=== PATIENT | male | born 1950 | race Caucasian/White ===

== ENCOUNTER 2019-10-02 06:13 | Day surgery (SDC) | payer OTHER, BC ==
[~2019-10-02] VITALS: Ht 177.8 cm; Wt 89.8 kg
[~2019-10-02 06:13] MED LIST: ATENOLOL 25 MG25 M1 PO; SIMVASTATIN40 MG PO
[2019-10-02 06:42] LABS: HEMATOCRIT 42.4 % (42.0-52.0); HEMOGLOBIN 14.7 gm/dL (14.0-18.0); MCH 31.3 pg (26.0-34.0); MCHC 34.6 g/dL (28.0-37.0); MCV 90.5 fL (80.0-100.0); RBC 4.69 mil/uL (4.50-6.00); RDW 13.5 % (10.5-14.5); WBC 6.9 thou/uL (4.0-11.0)
[2019-10-02 06:54] LABS: CALCIUM 8.3 mg/dL (8.5-10.1)
[2019-10-02 07:00] LABS: ALBUMIN 3.8 g/dL (3.4-5.0); TOTAL BILIRUBIN 0.5 mg/dL (0.2-1.0); TOTAL PROTEIN 7.1 g/dL (6.4-8.2)
[2019-10-02 07:12] VITALS: BP 116/62
--- NOTE | 2019-10-06 13:15 | O ---
[facility] [place] [address] OPERATIVE REPORT Name: ANTWAN JUAREZ Room #: DEP [facility] M.R.#: [id number] Admission: 10/02/19 Attend Phys: Eyad Rose, Discharge: 10/02/19 Date of : 50 Report #: [id number] THIS REPORT FOR: cc: Nicolasa Fry,Nicolasa Velez,Eyad Bazzi MD ~ CC: Eyad Fry DATE OF SERVICE: 10/02/2019 PREOPERATIVE DIAGNOSIS: Right recurrent inguinal hernia. POSTOPERATIVE DIAGNOSIS: Right recurrent inguinal hernia. OPERATION: Laparoscopic repair of right recurrent inguinal hernia with mesh. SURGEON: Eyad Rose MD ANESTHESIA: General. ESTIMATED BLOOD LOSS: Minimal. SPECIMEN: None. DESCRIPTION OF PROCEDURE: After informed consent was obtained, the patient was brought to the operating room and placed supine. SCDs were placed and working, preoperative antibiotics were administered, general anesthesia was induced. The abdomen was prepped and draped in the usual sterile fashion. The patient had voided just prior to coming back to surgery. A 10 mm incision was made above the umbilicus. Fascia was incised and a trocar was placed. Pneumoperitoneum was established. Right and left lower quadrant 5 mm ports were placed. The patient was placed in the Trendelenburg position. The peritoneum at the right ASIS was scored. Peritoneum was incised and reflected inferiorly. This allowed visualization of the pubic bone. I identified Paul's ligament. Epigastric vessels were identified and protected at all times. Cord structures were identified. A small cord lipoma was fully reduced. He had a recurrent direct inguinal hernia, this was all reduced bluntly. I could see the hernia defect. I inserted a large Bard 3DMax light mesh. It was tacked to Paul's ligament with 2 absorbable tacks. I then reapproximated the peritoneum with a running Stratafix suture. This covered the mesh widely and completely. The area was then instilled with 10 mL of 0.5% Marcaine solution. The ports were then removed under direct vision. The fascia at the umbilicus was closed with a [facility] [address] [place] [address] OPERATIVE REPORT Name: ANTWAN JUAREZ Room #: DEP [facility].#: [id number] Admission: 10/02/19 Attend Phys: Eyad Rose, Discharge: 10/02/19 Date of : 50 Report #: [id number] 0 Vicryl. Skin was closed with 4-0 Monocryl. Incisions were sealed with Dermabond. COMPLICATIONS: None. DISPOSITION: The patient was taken to recovery in satisfactory condition. <ELECTRONICALLY SIGNED> By: Eyad Rose MD 10/06/19 1315 [id number] Eyad Rose MD /jonathan
== END 2019-10-02 10:20 | disposition home or self-care (01) ==
LOC: OR 06:13 → TBA 06:13 → OR 10:20
PROVIDERS: Family Medicine; ATTEND Surgery
DX: K40.91 Unilateral inguinal hernia, without obstruction or gangrene, recurrent (principal); I10 Essential (primary) hypertension; E78.00 Pure hypercholesterolemia, unspecified; J45.909 Unspecified asthma, uncomplicated; Z98.890 Other specified postprocedural states; Z11.59 Encounter for screening for other viral diseases; Z79.899 Other long term (current) drug therapy; Z79.891 Long term (current) use of opiate analgesic; Z88.8 Allergy status to other drugs, medicaments and biological substances
CPT/HCPCS: 50010; 50101; 50249; 50411; 50507; 50555; 50848; 51489; 52265; 52266; 53307; 53314; 54022; 54118; 56462; 56525; 56526; 56531; 62110; 62900; 70005

== ENCOUNTER → 2021-01-24 | Outpatient (CLI) | payer OTHER, BC | LOC: LAB 09:21 | PROVIDERS: ATTEND Student in an Organized Health Care Education/Training Program | DX: Z01.812 Encounter for preprocedural laboratory examination (principal); Z20.822 Contact with and (suspected) exposure to COVID-19 ==

== ENCOUNTER → 2021-01-28 | Outpatient (CLI) | payer OTHER, BC ==
[~2021-01-28] VITALS: Ht 177.8 cm; Wt 88.5 kg
== END | disposition home or self-care (01) ==
LOC: GI 08:37
PROVIDERS: ATTEND Internal Medicine Gastroenterology
DX: Z12.11 Encounter for screening for malignant neoplasm of colon (principal); K57.30 Diverticulosis of large intestine without perforation or abscess without bleeding; K64.8 Other hemorrhoids; I10 Essential (primary) hypertension; J45.909 Unspecified asthma, uncomplicated; E78.00 Pure hypercholesterolemia, unspecified; Z98.890 Other specified postprocedural states; Z79.899 Other long term (current) drug therapy; Z88.6 Allergy status to analgesic agent
CPT/HCPCS: 62110; 62900

== ENCOUNTER 2021-04-12 16:10 | Emergency (ER) | payer OTHER, BC ==
[~2021-04-12] VITALS: Ht 177.8 cm; Wt 90.7 kg
[2021-04-12 16:55] LABS: ABSOLUTE NEUTROPHILS 3.8 thou/uL (1.4-8.2); BASOPHILS 1.3 % (0.0-2.0); EOSINOPHILS 3.5 % (0.0-3.0); HEMOGLOBIN 14.3 gm/dL (14.0-18.0); LYMPHOCYTES 36.8 % (24.0-44.0); MCH 30.5 pg (26.0-34.0); MCHC 33.3 g/dL (28.0-37.0); MCV 91.7 fL (80.0-100.0); MONOCYTES 9.4 % (1.0-8.0); PLATELET COUNT 225 thou/uL (150-400); RBC 4.69 mil/uL (4.50-6.00); RDW 13.3 % (10.5-14.5); WBC 7.7 thou/uL (4.0-11.0)
[2021-04-12 17:06] LABS: CALCIUM 8.8 mg/dL (8.5-10.1); POTASSIUM 4.3 mmol/L (3.5-5.1)
[2021-04-12 17:16] LABS: ALBUMIN 3.7 g/dL (3.4-5.0); TOTAL BILIRUBIN 0.4 mg/dL (0.2-1.0); TOTAL PROTEIN 7.5 g/dL (6.4-8.2)
[2021-04-12] MEDS ORDERED: MECLIZINE HCL25 M1 PO (19:07)
[2021-04-12 19:08] VITALS: BP 146/94
--- NOTE | 2021-04-14 07:12 | EKG ---
[address] [email or web address] [address] ELECTROCARDIOGRAM REPORT Name: ANTWAN JUAREZ Room #: DEP [facility]#: [id number] Admission: 04/12/21 Attend Phys: Discharge: 04/12/21 Date of : 50 Report #: [id number] [facility] ED Test Date: 2021-04-12 Test Time: 16:34:30 Pat Name: ANTWAN JUAREZ Department: Room: Gender: M [employer]: MARCY : 1950 Requested By: Giovanna Hargrove Order Number: [id number] MD: Nils Marie Measurements Intervals [place] Rate: 61 P: 40 MI: 302 QRS: 8 QRSD: 89 T: 62 QT: 404 QTc: 407 Interpretive Statements Sinus rhythm Prolonged MI interval Abnormal R-wave progression, early transition No previous ECG available for comparison Electronically Signed On 04-14-2021 7:12:19 [employer]ICE [employer]PER[employer] by Nils Marie [email or web address] <ELECTRONICALLY SIGNED> By: Nils Marie MD, [facility] 04/14/21 0712 [id number] Nils Marie MD, FACC /EPI
== END 2021-04-12 19:08 | disposition home or self-care (01) ==
LOC: ER 16:10
PROVIDERS: Emergency Medicine
DX: R42 Dizziness and giddiness (principal); I10 Essential (primary) hypertension; E78.00 Pure hypercholesterolemia, unspecified; Z79.899 Other long term (current) drug therapy; Z88.5 Allergy status to narcotic agent